=== PATIENT | female | born 1985 | race American Indian/Alaskan Native ===

== ENCOUNTER 2017-12-23 20:26 | Emergency (ER) | payer SELFPAY ==
[2017-12-23 21:20] VITALS: BP 144/86
--- NOTE | 2017-12-23 22:21 | Cat Scan Report ---
FINAL REPORT PROCEDURE: CT HEAD/BRAIN WO CON TECHNIQUE: Computerized tomography of the head was performed without contrast material. HISTORY: CURRIE w/vomiting and blurry vision COMPARISON: No prior studies are available for comparison. FINDINGS: Brain: Brain density appears normal. No evidence of intracranial hemorrhage. No parenchymal hemorrhage, mass lesions or mass effect are seen. No abnormal extraxial fluid collects or masses are seen. Ventricles: Ventricles are normal size and are midline. Bone Windows: No evidence of skull fracture. Paranasal sinuses: There is minimal patchy mucosal disease in a few of the ethmoid air cells. Visualized portions of the paranasal sinuses otherwise appear clear. Mastoid air cells: Clear IMPRESSION: Minimal paranasal sinus disease as described otherwise negative exam.
--- NOTE | 2017-12-24 00:11 | Emergency Department Report ---
ED Headache HPI - General Chief Complaint: Headache Stated Complaint: HEADACHE Time Seen by Provider: 12/23/17 23:13 - History of Present Illness Initial Comments: Patient's here complaining of a headache that started today, emesis 3 today last vomited at 7:30 PM. She reports that she had a little blurred vision but that has resolved. She denies any injuries to her head and denies any photo sensitivity. She reports she is drinking well and denies any nausea headaches are located left frontal that is constant and achy. She denies any nasal congestion no rhinorrhea no change in vision. She reports she took ibuprofen once today at 2 tabs [id number]. She denies any past medical history currently takes no medications and has no known drug allergies. Allergies/Adverse Reactions: Allergies No Known Allergies Allergy (Unverified 12/23/17 21:29) Home Medications: Ambulatory Orders Dexchlorpheniram/Phenylephrine [Rymed Tablet] 1 each PO Q6H #15 tab 12/24/17 Ibuprofen [Motrin 600 MG tab] 600 mg PO Q8H PRN #30 tablet 12/24/17 ED Review of Systems ROS: Stated complaint: HEADACHE Other details as noted in HPI Constitutional: denies: chills, fever Eyes: denies: eye pain, eye discharge, vision change ENT: denies: ear pain, throat pain Respiratory: denies: cough, shortness of breath, wheezing Cardiovascular: denies: chest pain, palpitations Endocrine: no symptoms reported Gastrointestinal: denies: abdominal pain, nausea, diarrhea Genitourinary: denies: urgency, dysuria, discharge Musculoskeletal: denies: back pain, joint swelling, arthralgia Skin: denies: rash, lesions Neurological: headache (frontal and constant achy) Psychiatric: denies: anxiety, depression Hematological/Lymphatic: denies: easy bleeding, easy bruising ED Past Medical Hx - Past Medical History Previous Medical History?: No - Surgical History Past Surgical History?: No - Social History Smoking Status: Current Every Day Smoker Substance Use Type: None - Medications Home Medications: Home Medications Medication Instructions Recorded Confirmed Last Taken Type Dexchlorpheniram/Phenylephrine 1 each PO Q6H #15 tab 12/24/17 Unknown Rx [Rymed Tablet] Ibuprofen [Motrin 600 MG tab] 600 mg PO Q8H PRN #30 tablet 12/24/17 Unknown Rx ED Physical Exam - General Limitations: No Limitations General appearance: alert, in no apparent distress - Head Head exam: Present: atraumatic, normocephalic - Eye Eye exam: Present: normal appearance - ENT ENT exam: Present: mucous membranes moist - Neck Neck exam: Present: normal inspection - Respiratory Respiratory exam: Present: normal lung sounds bilaterally. Absent: respiratory distress - Cardiovascular Cardiovascular Exam: Present: regular rate, normal rhythm. Absent: systolic murmur, diastolic murmur, rubs, gallop - GI/Abdominal GI/Abdominal exam: Present: soft, normal bowel sounds - Extremities Exam Extremities exam: Present: normal inspection, full ROM - Back Exam Back exam: Present: normal inspection - Neurological Exam Neurological exam: Present: alert, oriented X3 - Expanded Neurological Exam Expanded Cranial nerves: EOM's Intact: Normal, Gag Reflex: Normal, Tongue Deviation: Normal, Nystagmus: Normal, Facial Sensation: Normal Cerebellar function: Finger to Nose: Normal, Heel to Brower: Normal, Romberg: Normal Upper motor neuron: Dino Neglect: Normal, Pronator Drift: Normal Sensory exam: Upper Extremity Light Touch: Normal, Lower Extremity Light Touch: Normal, Lower Extremity Temperature: Normal Motor strength exam: RUE: 5, LUE: 5, RLE: 5, LLE: 5 Best Eye Response ([place]): (4) open spontaneously Best Motor Response ([place]): (6) obeys commands Best Verbal Response ([place]): (5) oriented [place] Total: 15 - Psychiatric Psychiatric exam: Present: normal affect, normal mood - Skin Skin exam: Present: warm, dry, intact, normal color. Absent: rash ED Course Vital Signs 12/23/17 12/23/17 21:14 21:29 Temperature 98.7 F Pulse Rate 87 86 Respiratory 16 18 Rate Blood Pressure 144/86 144/86 O2 Sat by Pulse 100 100 Oximetry ED Medical Decision Making - Radiology Data Radiology results: report reviewed, image reviewed - Medical Decision Making FINDINGS: Brain: Brain density appears normal. No evidence of intracranial hemorrhage. No parenchymal hemorrhage, mass lesions or mass effect are seen. No abnormal extraxial fluid collects or masses are seen. Ventricles: Ventricles are normal size and are midline. Bone Windows: No evidence of skull fracture. Paranasal sinuses: There is minimal patchy mucosal disease in a few of the ethmoid air cells. Visualized portions of the paranasal sinuses otherwise appear clear. Mastoid air cells: Clear IMPRESSION: Minimal paranasal sinus disease as described otherwise negative exam. Transcribed By: DFN Dictated By: POP DANIELSON MD Electronically Authenticated By: POP DANIELSON MD Signed Date/Time: 12/23/172214 DD/ 14 TD/TT: 12/23/172214 Critical care attestation.: If time is entered above; I have spent that time in minutes in the direct care of this critically ill patient, excluding procedure time. ED Disposition Clinical Impression: Frontal headache Disposition: DC-01 TO HOME OR SELFCARE Is pt being admited?: No Does the pt Need Aspirin: No Condition: Stable Instructions: Analgesic/Decongestant (By mouth) Additional Instructions: Please take pain medication and antihistamine with a decongestion as prescribed. Please increase her fluid intake to include 2 extra liters a day. If symptoms persist or gets worse please follow up with her primary care provider. Prescriptions: Dexchlorpheniram/Phenylephrine [Rymed Tablet] 1 each PO Q6H #15 tab Ibuprofen [Motrin 600 MG tab] 600 mg PO Q8H PRN #30 tablet PRN Reason: Pain Referrals: PRIMARY CAREMD [Primary Care Provider] - 3-5 Days [facility] [Provider Group] - 3-5 Days Forms: Work/School Release Form(ED)
[2017-12-24 00:19] LABS: Amorphous Crystals,Urine 1+; Bilirubin,Urine NEG (Negative); Blood,Urine NEG (Negative); Color,Urine Yellow (Yellow); Mucus,Urine FEW /HPF; Protein,Urine <15 mg/dL mg/dL (Negative); Urobilinogen,Urine < 2.0 mg/dL (<2.0)
[2017-12-24 00:24] LABS: HCG Qualitative,Urine Negative (Negative)
[2017-12-24] MEDS ORDERED: MOTRIN PO ONE (00:27)
== END 2017-12-24 00:43 | disposition home or self-care (01) ==
LOC: ED 20:26
DX: R51 Headache (principal); F17.200 Nicotine dependence, unspecified, uncomplicated
CPT/HCPCS: 70450; 81001; 81025; 87086

== ENCOUNTER 2018-04-12 20:26 | Emergency (ER) | payer SELFPAY ==
[2018-04-12 21:16] LABS: Basophils % (Auto) 0.4 % (0.0-1.8); Eosinophils # (Auto) 0.1 K/mm3 (0.0-0.4); Eosinophils % (Auto) 1.9 % (0.0-4.3); Hemoglobin 14.1 gm/dl (10.1-14.3); Lymphocytes % (Auto) 29.7 % (13.4-35.0); Mean Corpuscular HGB Conc 35 % (30-34); Mean Corpuscular Hemoglobin 31 pg (28-32); Mean Corpuscular Volume 89 fl (79-97); Monocytes # (Auto) 0.6 K/mm3 (0.0-0.8); Monocytes % (Auto) 9.5 % (0.0-7.3); Platelet Count 151 K/mm3 (140-440); Red Blood Count 4.59 M/mm3 (3.65-5.03); Red Cell Distribution Width 13.4 % (13.2-15.2)
[2018-04-12 23:56] VITALS: BP 110/62
[2018-04-13 00:16] LABS: Bilirubin,Urine NEG (Negative); Blood,Urine MOD (Negative); Color,Urine Yellow (Yellow); Protein,Urine <15 mg/dL mg/dL (Negative); Urobilinogen,Urine < 2.0 mg/dL (<2.0)
--- NOTE | 2018-04-13 00:22 | Ultrasound Report ---
FINAL REPORT PROCEDURE: US OB TRANSVAGINAL TECHNIQUE: Real-time transvaginal sonography of the uterus, placenta, amniotic fluid, adnexa, and fetus was performed with image documentation. Measurements were obtained to determine age/size. M-mode Doppler was used to document heartbeat. CPT 82770 HISTORY: +hcg Bleeding COMPARISON: Transabdominal OB ultrasound also performed today. FINDINGS: Report for this exam was generated reviewing images of both the transabdominal and transvaginal OB ultrasound both of which were performed today. There is a gestational sac visualized in the endometrial canal with a yolk sac and pole visualized. Frontal blank measuring 4.7 millimeters corresponding to an age of 6 week 1 day. Corresponding to an age is 6 week 2 days. Fetus currently too small to assess anatomy. heart rate of 100 beats per minute detected. Subchorionic hemorrhage visualized measuring 1.0 x 0.3 x 2.2 centimeter. Shape of the gestational sac appears normal. No uterine masses are identified. Uterus is retroflexed. Slightly irregular cystic structure visualized in the right ovary measuring 2.4 centimeter may represent corpus luteum cyst of . Right and left ovaries otherwise are unremarkable. IMPRESSION: There is a single living intrauterine gestation visualized. By crown-rump length measurement the estimated age is 6 week 1 day. This places the EDC at 12/05/2018 plus or minus 0.5 weeks. Subchorionic hemorrhage visualized as described. Shape of the gestational sac otherwise appears normal. Fetus currently too small to assess anatomy. No gross abnormality is visualized. Consider follow-up anatomic screen at 18-20 weeks. Cystic change visualize right ovary suggesting corpus luteum cyst of .
--- NOTE | 2018-04-13 00:25 | Ultrasound Report ---
FINAL REPORT PROCEDURE: US OB < = 14 WEEKS FETUS TECHNIQUE: Real-time transabdominal sonography of the uterus, placenta, amniotic fluid, adnexa, and fetus was performed with image documentation. Measurements were obtained to determine age/size. M-mode Doppler was used to document heartbeat. CPT 24463 HISTORY: +hcg Bleeding COMPARISON: Transvaginal OB ultrasound also performed today. FINDINGS: Report for this exam was generated reviewing images of both the transabdominal and transvaginal OB ultrasound both of which were performed today. There is a gestational sac visualized in the endometrial canal with a yolk sac and pole visualized. The crown-rump length measurement is 4.7 millimeters corresponding to an age of 6 week 1 day. Corresponding to an age is 6 week 2 days. Fetus currently too small to assess anatomy. heart rate of 100 beats per minute detected. Subchorionic hemorrhage visualized measuring 1.0 x 0.3 x 2.2 centimeter. Shape of the gestational sac appears normal. No uterine masses are identified. Uterus is retroflexed. Slightly irregular cystic structure visualized in the right ovary measuring 2.4 centimeter may represent corpus luteum cyst of . Right and left ovaries otherwise are unremarkable. IMPRESSION: There is a single living intrauterine gestation visualized. By crown-rump length measurement the estimated age is 6 week 1 day. This places the EDC at 12/05/2018 plus or minus 0.5 weeks. Subchorionic hemorrhage visualized as described. Shape of the gestational sac otherwise appears normal. Fetus currently too small to assess anatomy. No gross abnormality is visualized. Consider follow-up anatomic screen at 18-20 weeks. Cystic change visualize right ovary suggesting corpus luteum cyst of .
--- NOTE | 2018-04-13 00:49 | Emergency Department Report ---
HPI - General Chief Complaint: Vaginal Bleeding Time Seen by Provider: 04/12/18 22:43 - HPI HPI: 33-year-old Zoraida female presents to the emergency department with a complaint of some vaginal bleeding that started about 8 PM this evening, all while the patient is . She found out that she was after a visit to [place] a few days ago. She says she has not currently on any vitamins. With this she is with 2 live children. She has not taken anything for her symptoms prior to presentation. She has filled up about 1 pad in total. She has some very mild pelvic cramping. She does not have an [facility] [employer] [facility]. No other past medical history. ED Past Medical Hx - Past Medical History Previous Medical History?: No - Surgical History Past Surgical History?: No - Social History Smoking Status: Current Every Day Smoker Substance Use Type: None - Medications Home Medications: Home Medications Medication Instructions Recorded Confirmed Last Taken Type Dexchlorpheniram/Phenylephrine 1 each PO Q6H #15 tab 12/24/17 Unknown Rx [Rymed Tablet] Ibuprofen [Motrin 600 MG tab] 600 mg PO Q8H PRN #30 tablet 12/24/17 Unknown Rx ED Review of Systems ROS: Stated complaint: 7 WEEKS PREG/BLEEDING Other details as noted in HPI Comment: All other systems reviewed and negative Constitutional: denies: chills, fever Eyes: denies: eye pain, eye discharge, vision change ENT: denies: ear pain, throat pain Respiratory: denies: cough, shortness of breath, wheezing Cardiovascular: denies: chest pain, palpitations Gastrointestinal: denies: nausea, vomiting Genitourinary: other (pelvic cramping, vaginal bleeding). denies: discharge Musculoskeletal: denies: back pain, joint swelling, arthralgia Skin: denies: rash, lesions Neurological: denies: headache, weakness, paresthesias Physical Exam - Physical Exam Vital Signs: Vital Signs 04/12/18 04/12/18 20:41 23:53 Temperature 99.1 F Pulse Rate 97 H 85 Respiratory 12 18 Rate Blood Pressure 115/71 Blood Pressure 110/62 [Right] O2 Sat by Pulse 99 100 Oximetry Physical Exam: GENERAL: The patient is well-developed well-nourished. HENT: Normocephalic. Atraumatic. Patient has moist mucous membranes. EYES: Extraocular motions are intact. NECK: Supple. Trachea is midline. CHEST/LUNGS: Clear to auscultation. There is no respiratory distress noted. HEART/CARDIOVASCULAR: Regular. There is no tachycardia. There is no murmur. ABDOMEN: Abdomen is soft, nontender. Patient has normal bowel sounds. There is no abdominal distention. SKIN: Skin is warm and dry. NEURO: The patient is awake, alert, and oriented. The patient is cooperative. The patient has no focal neurologic deficits. The patient has normal speech and gait. MUSCULOSKELETAL: There is no tenderness or deformity. There is no limitation range of motion. There is no evidence of acute injury. ED Course Vital Signs 04/12/18 04/12/18 20:41 23:53 Temperature 99.1 F Pulse Rate 97 H 85 Respiratory 12 18 Rate Blood Pressure 115/71 Blood Pressure 110/62 [Right] O2 Sat by Pulse 99 100 Oximetry ED Medical Decision Making - Lab Data Result diagrams: 04/12/18 20:53 - Radiology Data Radiology results: report reviewed PROCEDURE: US OB TRANSVAGINAL TECHNIQUE: Real-time transvaginal sonography of the uterus, placenta, amniotic fluid, adnexa, and fetus was performed with image documentation. Measurements were obtained to determine age/size. M-mode Doppler was used to document heartbeat. CPT 27178 HISTORY: +hcg Bleeding COMPARISON: Transabdominal OB ultrasound also performed today. FINDINGS: Report for this exam was generated reviewing images of both the transabdominal and transvaginal OB ultrasound both of which were performed today. There is a gestational sac visualized in the endometrial canal with a yolk sac and pole visualized. Frontal blank measuring 4.7 millimeters corresponding to an age of 6 week 1 day. Corresponding to an age is 6 week 2 days. Fetus currently too small to assess anatomy. heart rate of 100 beats per minute detected. Subchorionic hemorrhage visualized measuring 1.0 x 0.3 x 2.2 centimeter. Shape of the gestational sac appears normal. No uterine masses are identified. Uterus is retroflexed. Slightly irregular cystic structure visualized in the right ovary measuring 2.4 centimeter may represent corpus luteum cyst of . Right and left ovaries otherwise are unremarkable. IMPRESSION: There is a single living intrauterine gestation visualized. By crown-rump length measurement the estimated age is 6 week 1 day. This places the EDC at 12/05/2018 plus or minus 0.5 weeks. Subchorionic hemorrhage visualized as described. Shape of the gestational sac otherwise appears normal. Fetus currently too small to assess anatomy. No gross abnormality is visualized. Consider follow-up anatomic screen at 18-20 weeks. Cystic change visualize right ovary suggesting corpus luteum cyst of . Transcribed By: FAVIOLA Dictated By: POP DANIELSON MD Electronically Authenticated By: POP DANIELSON MD Signed Date/Time: 04/13/18 0022 - Medical Decision Making Patient presented with some vaginal bleeding that started this evening while . Patient's labs were mostly unremarkable. Ultrasound was done that shows a single live intrauterine gestation at about 6 weeks as well as a subchorionic bleed. I was able to tell the patient the results of the ultrasound. We discussed a diagnosis of threatened miscarriage. The plan was going to be to give the patient referrals for [facility] and we were waiting on the urinalysis to see if antibiotics need to be added. She was going to get a prescription for vitamins. However as the urinalysis was coming back, the patient eloped from the emergency department without any prescriptions or discharge instructions. - Differential Diagnosis threatened miscarriage, spontaneous miscarriage, , fibroids Critical Care Time: No Critical care attestation.: If time is entered above; I have spent that time in minutes in the direct care of this critically ill patient, excluding procedure time. ED Disposition Clinical Impression: Threatened miscarriage Qualifiers: Weeks of gestation: less than 8 weeks Qualified Code(s): Z3A.01 - Less than 8 weeks gestation of Disposition: Z-07 ELOPED Is pt being admited?: No Condition: Stable Referrals: SULAIMAN PARKER MD [Primary Care Provider] - 3-5 Days Forms: AMA Form
== END 2018-04-13 01:00 | disposition left against medical advice (07) ==
LOC: ED 20:26
DX: O20.0 Threatened abortion (principal); F17.200 Nicotine dependence, unspecified, uncomplicated; Z3A.01 Less than 8 weeks gestation of pregnancy
CPT/HCPCS: 36415; 76801; 76817; 81001; 84702; 85025; 86850; 86900; 86901